=== PATIENT | male | born 1960 | race Caucasian/White ===

== ENCOUNTER 2018-07-17 11:43 | Emergency (ER) | payer MEDICAID ==
[~2018-07-17] VITALS: Ht 175.3 cm; Wt 61.5 kg
[2018-07-17] MEDS ORDERED: PLEASE ENTER ALLERGIES MC SCH (12:00)
[2018-07-17] MEDS ORDERED: CLINDAMYCIN PMX 600MG/50ML 50 ML IVPB ONE (12:00)
[2018-07-17] MEDS ORDERED: SODIUM CHLORIDE FLUSH 10ML SYR IVF ONE (12:00)
[2018-07-17] MEDS ORDERED: CLINDAMYCIN PMX 600MG/50ML 50 ML ONE (12:15)
[2018-07-17 12:24] LABS: BASOPHILS # (AUTO) 0.01 x10^3/uL (0-0.1); BASOPHILS % (AUTO) 0 % (0-1); EOSINOPHILS % (AUTO) 0 % (1-7); LYMPHOCYTES # (AUTO) 0.58 x10^3/uL (1-3.4); LYMPHOCYTES % (AUTO) 5 % (22-44); MD NO; MEAN CORPUSCULAR HEMOGLOBIN 34.6 pg (27.5-34.5); MEAN CORPUSCULAR HGB CONC 34.2 g/dL (33.2-36.2); MEAN CORPUSCULAR VOLUME 101.3 fL (81-97); MEAN PLATELET VOLUME 5.9 fL (7.4-10.4); MONOCYTES # (AUTO) 0.43 x10^3/uL (0.2-0.8); MONOCYTES % (AUTO) 4 % (2-9); NEUTROPHILS # (AUTO) 10.62 x10^3/uL (1.8-6.8); NEUTROPHILS % (AUTO) 91 % (42-75); PLATELET COUNT 261 x10^3/uL (130-400); RED CELL DISTRIBUTION WIDTH 14.9 % (9.4-14.8)
[2018-07-17 12:33] LABS: ALBUMIN 3.5 g/dL (3.4-5.0); ANION GAP 18 mmol/L (5-15); CALCIUM 8.8 mg/dL (8.5-10.1); CHLORIDE 104 mmol/L (98-107)
[2018-07-17 12:34] LABS: CREATININE 0.59 mg/dL (0.7-1.3)
[2018-07-17] MEDS ORDERED: LORazepam 1MG TABLET ONE (12:49)
[2018-07-17] MEDS ORDERED: HYDROcodone/APAP 5/325 TABLET ONE (12:49)
[2018-07-17] MEDS ORDERED: HYDROcodone/APAP 5/325 TABLET PO ONE (13:00)
[2018-07-17] MEDS ORDERED: LORazepam 1MG TABLET PO ONE (13:00)
[2018-07-17 13:41] VITALS: BP 136/79
== END 2018-07-17 13:56 | disposition home or self-care (01) ==
LOC: ED 13:54
DX: L03.113 Cellulitis of right upper limb (principal); L03.114 Cellulitis of left upper limb; F15.10 Other stimulant abuse, uncomplicated; E11.9 Type 2 diabetes mellitus without complications; F17.200 Nicotine dependence, unspecified, uncomplicated
CPT/HCPCS: 36415; 80048; 82040; 85025; 96365; 99283

== ENCOUNTER 2018-07-22 09:45 | Emergency (ER) | payer MEDICAID ==
[~2018-07-22] VITALS: Ht 175.3 cm; Wt 60.0 kg
[2018-07-22] MEDS ORDERED: HYDROcodone/APAP 5/325 TABLET ONE (10:14)
[2018-07-22] MEDS ORDERED: BACITRACIN ZINC OINT 500U/GM, 0.9 GM ONE ×2 (10:27→11:22)
[2018-07-22] MEDS ORDERED: HYDROcodone/APAP 5/325 TABLET PO ONE (10:30)
[2018-07-22] MEDS ORDERED: MUPIROCIN OINT 2%, 22GM TP ONE (10:30)
[2018-07-22] MEDS ORDERED: AMPICILLIN/SULBACTAM 3 GM IM ONE (10:30)
[2018-07-22 11:49] VITALS: BP 137/80
== END 2018-07-22 12:10 | disposition home or self-care (01) ==
LOC: ED 12:03
DX: L03.211 Cellulitis of face (principal); L03.113 Cellulitis of right upper limb; L03.114 Cellulitis of left upper limb; E11.9 Type 2 diabetes mellitus without complications; Z72.9 Problem related to lifestyle, unspecified
CPT/HCPCS: 96372; 99283; J0295